=== PATIENT | female | born 1935 | race Caucasian/White ===

== ENCOUNTER 2016-09-26 13:11 | Outpatient (CLI) ==
[2015-09-05 01:46] VITALS: BMI 35.2
--- NOTE | 2016-09-27 09:34 | MAMMO ---
EXAM: Bilateral digital screening mammogram. History: Screening Comparison: Bilateral mammogram 07/27/2015. Findings: MLO and CC views of bilateral breasts demonstrate predominately fatty replaced breast par enchyma. Stable benign bilateral breast calcifications. There are no dominant masses, no suspiciou s microcalcifications and no architectural distortions Impression: Benign stable mammogram. Recommend followup routine screening mammography in 1 year. BIRADS 2
== END 2016-09-26 13:12 | disposition home or self-care (01) ==
LOC: RAD 13:11
PROVIDERS: ATTEND Family Medicine
DX: Z12.31 Encounter for screening mammogram for malignant neoplasm of breast (principal)

== ENCOUNTER 2017-04-09 08:37 | Outpatient (CLI) ==
[2015-09-05 01:46] VITALS: BMI 35.2
--- NOTE | 2017-04-09 09:28 | US ---
Exam: Sousa-scale and color Doppler ultrasonographic evaluation of the carotid arteries. Comparison: None available. Reason for exam: Atherosclerosis. FINDINGS: There is a small amount of heterogeneous appearing plaque in the proximal portion of the right internal carotid artery at the level of the bulb. The right external carotid artery measures 100 / 0 cm/sec. The right common carotid artery measures 130 / 10 cm/sec. The right internal carotid artery peak systolic velocity measures 80 cm/sec. The right internal carotid artery/CCA PSV ratio measures 0.6. The internal carotid artery end-diastolic velocity measures 30 cm/sec. There is normal antegrade right vertebral artery flow. There is a moderate amount of plaque seen in the proximal portion of the left internal carotid arter y at the level of the bulb. The left external carotid artery measures 70 / 0 cm/sec. The left common carotid artery measures 80 / 20 cm/sec. The left internal carotid artery peak systolic velocity measures 60 cm/sec. The left internal carotid artery/CCA PSV ratio measures 0.7. The left internal carotid artery end-diastolic velocity measures 20 cm/sec. There is normal antegrade left vertebral artery flow. Impression: 1. No evidence of significant stenotic disease based on peak systolic velocities 2. Small amount of heterogeneous plaque is seen in both the right and left internal carotid arterie s.
== END 2017-04-09 08:38 | disposition home or self-care (01) ==
LOC: RAD 08:37
PROVIDERS: ATTEND Family Medicine
DX: I65.29 Occlusion and stenosis of unspecified carotid artery (principal); R09.89 Other specified symptoms and signs involving the circulatory and respiratory systems

== ENCOUNTER 2017-09-28 15:22 | Outpatient (CLI) | payer OTHER ==
[2015-09-05 01:46] VITALS: BMI 35.2
--- NOTE | 2017-09-28 16:13 | DI ---
EXAM: Pelvis AP view HISTORY: Lower back pain FINDINGS: Compared to 07/28/2015. Redemonstration of bilateral hip osteoarthritis, moderately severe on the left. The left arthropathy has slightly worsened since prior exam. There is no fracture or d islocation. Sacroiliac joints are within normal limits. General bone density appears mildly decreas ed. Probable moderate facet arthropathy lumbosacral junction. IMPRESSION: 1. Degenerative changes of the lower spine. 2. Hip osteoarthritis, much more noticeable on the left.
--- NOTE | 2017-09-28 16:20 | DI ---
EXAM: Lumbar spine three views HISTORY: Back pain FINDINGS: Compared to 07/28/2015. No noticeable scoliosis. Sacroiliac joints are within normal walker its. Lateral views reveal diffuse moderate to severe degenerative disc and facet disease. No loss o f vertebral body height or acute fracture. There is mild anterior spondylolisthesis of L4 on L5 dorian mated at 0.36 cm. IMPRESSION: Worsening degenerative disc and facet disease since previous exam. Stable mild anterior spondylolist hesis of L4 on L5.
== END 2017-09-28 15:23 | disposition home or self-care (01) ==
LOC: RAD 15:22
PROVIDERS: ATTEND Family Medicine
DX: M54.9 Dorsalgia, unspecified (principal); G89.29 Other chronic pain

== ENCOUNTER 2017-10-08 12:19 | Outpatient (CLI) ==
[2015-09-05 01:46] VITALS: BMI 35.2
== END 2017-10-08 12:20 | disposition home or self-care (01) ==
LOC: RAD 12:19
PROVIDERS: ATTEND Family Medicine
DX: Z12.31 Encounter for screening mammogram for malignant neoplasm of breast (principal); Z80.3 Family history of malignant neoplasm of breast
CPT/HCPCS: 77067

== ENCOUNTER 2019-04-28 16:17 | Outpatient (CLI) ==
[2015-09-05 01:46] VITALS: BMI 35.2
== END 2019-04-28 16:18 | disposition home or self-care (01) ==
LOC: LAB 16:17
PROVIDERS: ATTEND Family Medicine
DX: Z79.899 Other long term (current) drug therapy (principal)
CPT/HCPCS: 36415; 80053; 85025

== ENCOUNTER 2019-05-08 15:25 | Outpatient (CLI) | payer OTHER ==
[2015-09-05 01:46] VITALS: BMI 35.2
== END 2019-05-08 15:26 | disposition home or self-care (01) ==
LOC: NONPT 15:25
PROVIDERS: ATTEND Family Medicine
DX: R79.9 Abnormal finding of blood chemistry, unspecified (principal)
CPT/HCPCS: 85025